=== PATIENT | male | born 2005 | race Caucasian/White ===

== ENCOUNTER 2024-06-27 20:44 | Emergency (ER) | payer BC ==
[~2024-06-27] VITALS: Ht 172.7 cm; Wt 79.5 kg
[2024-06-27 22:36] VITALS: BP 129/72; PULSE 84; TEMP 98.1
== END 2024-06-27 22:36 | disposition home or self-care (01) ==
LOC: COL.ER 20:44
DX: S91.201A Unspecified open wound of right great toe with damage to nail, initial encounter (principal); W25.XXXA Contact with sharp glass, initial encounter